=== PATIENT | female | born 1975 | race Caucasian/White ===

== ENCOUNTER 2019-06-08 12:18 | Emergency (ER) | payer OTHER ==
[~2019-06-08] VITALS: Ht 157.5 cm; Wt 103.4 kg
[2019-06-08] MEDS ORDERED: PROMETH-CODEIN 65 ML PO (13:48)
[2019-06-08] MEDS ORDERED: ZITHROMAX500 MG PO (13:48)
[2019-06-08] MEDS ORDERED: TESSALON PERLE100 M1 PO (13:48)
== END 2019-06-08 14:24 | disposition home or self-care (01) ==
LOC: ER 12:18
DX: J40 Bronchitis, not specified as acute or chronic (principal)

== ENCOUNTER 2023-09-26 22:21 | Emergency (ER) | payer OTHER ==
[~2023-09-26] VITALS: Ht 157.5 cm; Wt 100.7 kg
[~2023-09-26 22:21] MED LIST: PROMETH-CODEIN 65 ML PO; TESSALON PERLE100 M1 PO; ZITHROMAX500 MG PO
== END 2023-09-27 00:51 | disposition home or self-care (01) ==
LOC: ER 22:22
DX: K21.9 Gastro-esophageal reflux disease without esophagitis (principal); R12 Heartburn; R53.81 Other malaise; Z88.0 Allergy status to penicillin

== ENCOUNTER 2024-11-25 10:27 | Outpatient (CLI) | payer OTHER | END 2024-11-25 10:30 | disposition home or self-care (01) | LOC: SONOGRAMA 10:27 | PROVIDERS: ATTEND General Practice | DX: N84.0 Polyp of corpus uteri (principal); Z12.31 Encounter for screening mammogram for malignant neoplasm of breast ==

== ENCOUNTER 2025-04-07 08:38 | Outpatient (CLI) | payer OTHER | END 2025-04-07 08:46 | disposition home or self-care (01) | LOC: SONOGRAMA 08:38 | DX: R10.2 Pelvic and perineal pain (principal) ==